=== PATIENT | male | born 1960 | race Caucasian/White ===

== ENCOUNTER 2016-09-21 02:10 | Inpatient (IN) | payer MEDICARE, OTHER ==
[2016-09-21 02:36] LABS: BASOPHILS % (AUTO) 1 % (0-3); EOSINOPHILS % (AUTO) 2 % (0-9); HEMATOCRIT 33 % (39-53); MEAN CORPUSCULAR HGB CONC 33.2 gm/dl (32.0-36.0); MEAN CORPUSCULAR VOLUME 88 fL (80-100); MONOCYTES % (AUTO) 11.1 % (0-12)
[2016-09-21 02:51] LABS: ALBUMIN 2.6 gm/dl (3.4-5.0); CALCIUM 7.8 mg/dl (8.5-10.1); POTASSIUM 3.2 mMol/L (3.5-5.1)
[2016-09-21] MEDS ORDERED: SODIUM CHLORIDE 0.9% 1000ML 1,000 ML IV ONE ×2 (02:57→04:42)
[2016-09-21] MEDS ORDERED: THIAMINE 100 MG/ML 100 MG/ML SOL IV ONE (02:57)
[2016-09-21] MEDS ORDERED: SODIUM CHLORIDE 0.9% FLUSH 10 ML SOL IV PRN (02:57)
[2016-09-21] MEDS ORDERED: FOLIC ACID 1 MG TAB PO ONE (02:59)
[2016-09-21] MEDS ORDERED: THIAMINE 100 MG/ML 100 MG/ML SOL ONE (03:00)
[2016-09-21] MEDS ORDERED: POTASSIUM CHLORIDE 2 MEQ/ML 40 MEQ, LIDOCAINE HCL 1% MDV 2 ML in SODIUM CHLORIDE 0.9% 5... IV ONE (04:08)
[2016-09-21] MEDS ORDERED: POTASSIUM CHLORIDE 2 MEQ/ML SOL IV ONE (04:15)
[2016-09-21] MEDS ORDERED: LIDOCAINE HCL 1% MPF SOL ONE (04:15)
[2016-09-21 05:57] LABS: AMPHETAMINES NEGATIVE (NEGATIVE); METHADONE NEGATIVE (NEGATIVE); OPIATES(OP13) POSITIVE (NEGATIVE); OXYCODONE(OXY) POSITIVE (NEGATIVE); PROPOXYPHENE(PPX) NEGATIVE (NEGATIVE); TRICYCLIC ANTIDEPRESSANTS NEGATIVE (NEGATIVE)
[2016-09-21 10:28] VITALS: BP 186/97; PULSE 77; RESP 12; TEMP 98.9; O2SAT 94
[2016-09-21] MEDS ORDERED: PNEUMOCOCCAL VACCINE 0.5 ML SOL IM ONE (10:56)
== END 2016-09-21 11:25 | disposition home or self-care (01) | DRG 897 ==
LOC: ED 02:10 → ACUTE CARE 04:05
PROVIDERS: ADMIT Family Medicine; ATTEND Family Medicine
DX: T42.4X2A Poisoning by benzodiazepines, intentional self-harm, initial encounter (principal); F10.129 Alcohol abuse with intoxication, unspecified; L03.311 Cellulitis of abdominal wall; Y90.7 Blood alcohol level of 200-239 mg/100 ml
CPT/HCPCS: 36415; 71010; 80053; 80305; 80307; 85025; 90732; 93012; 96365; 96374; 99221; 99238; 99284; J3480; J2001

== ENCOUNTER 2017-04-12 06:37 | Emergency (ER) | payer MEDICARE, OTHER ==
[2017-04-12 06:54] VITALS: RESP 22; TEMP 98.4
[2017-04-12] MEDS ORDERED: HYDROMORPHONE HCL 2 MG/ML SOL IV ONE (06:58)
[2017-04-12] MEDS ORDERED: ONDANSETRON HCL 4 MG/2 ML SOL IV ONE (06:58)
[2017-04-12] MEDS ORDERED: SODIUM CHLORIDE 0.9% 1000ML 1,000 ML IV ONE (07:04)
[2017-04-12] MEDS ORDERED: HYDROMORPHONE 1 MG/ML SYRINGE ONE (07:13)
[2017-04-12] MEDS ORDERED: ONDANSETRON HCL 4 MG/2 ML SOL ONE (07:13)
[2017-04-12 07:35] LABS: BASOPHILS % (AUTO) 1 % (0-3); EOSINOPHILS % (AUTO) 1 % (0-9); HEMATOCRIT 37 % (39-53); MEAN CORPUSCULAR HGB CONC 34.1 gm/dl (32.0-36.0); MEAN CORPUSCULAR VOLUME 83 fL (80-100); MONOCYTES % (AUTO) 9.9 % (0-12); NEUTROPHILS % (AUTO) 62.7 % (37-80)
[2017-04-12 07:42] LABS: ALBUMIN 3.1 gm/dl (3.4-5.0); CALCIUM 8.6 mg/dl (8.5-10.1); POTASSIUM 4.6 mMol/L (3.5-5.1)
[2017-04-12 07:53] LABS: APPEARANCE,URINE Clear; BILIRUBIN,URINE NEGATIVE (NEGATIVE); COLOR,URINE Yellow; GLUCOSE, URINE (UA) NEGATIVE (NEGATIVE); KETONES,URINE NEGATIVE (NEGATIVE); LEUKOCYTE ESTERASE ,URINE NEGATIVE (NEGATIVE); NITRATE,URINE NEGATIVE (NEGATIVE); OCCULT BLOOD,URINE TRACE INTACT (NEG-TRACE); UROBILINOGEN,URINE 0.2 (0.2-1.0 EU)
[2017-04-12 08:21] LABS: RBC,URINE 0-1 (0-3AV/HPF)
[2017-04-12 08:22] LABS: WBC,URINE NEG (0-5AV/HPF)
[2017-04-12 10:48] VITALS: O2SAT 95
[2017-04-12 10:49] VITALS: BP 139/78; PULSE 62
== END 2017-04-12 10:57 | disposition home or self-care (01) | DRG 301 ==
LOC: ED 06:37
DX: I74.3 Embolism and thrombosis of arteries of the lower extremities (principal); K59.00 Constipation, unspecified; R10.30 Lower abdominal pain, unspecified; N20.0 Calculus of kidney
CPT/HCPCS: 36415; 74177; 80053; 81001; 85025; 96365; 96366; 96374; 96375; 99284; 99285; J2405; Q9967; J1170

== ENCOUNTER 2017-10-03 18:31 | Observation (INO) | payer MEDICARE, OTHER ==
[2017-10-03] MEDS ORDERED: SODIUM CHLORIDE 0.9% 1000 ML SOL IV SCH (18:45)
[2017-10-03 18:53] LABS: BASOPHILS % (AUTO) 1 % (0-3); EOSINOPHILS % (AUTO) 1 % (0-9); HEMATOCRIT 39 % (39-53); HEMOGLOBIN 12.8 gm/dl (13.5-17.7); LYMPHOCYTES % (AUTO) 24.4 % (10-50); MEAN CORPUSCULAR HEMOGLOBIN 28.9 pg (27.0-32.0); MEAN CORPUSCULAR HGB CONC 32.8 gm/dl (32.0-36.0); MEAN CORPUSCULAR VOLUME 88 fL (80-100); MONOCYTES % (AUTO) 6.5 % (0-12)
[2017-10-03 19:01] LABS: LACTIC ACID 2.6 mMol/L (0.0-2.0)
[2017-10-03] MEDS ORDERED: HYDROMORPHONE 1 MG/ML SYRINGE IV STA ×2 (19:09→23:00)
[2017-10-03 19:10] LABS: ALBUMIN 2.9 gm/dl (3.4-5.0); BILIRUBIN,TOTAL 0.4 mg/dl (0.2-1.0); CALCIUM 8.7 mg/dl (8.5-10.1); CARBON DIOXIDE 25.3 mEq/L (21-32); CRP INFLAMMATORY 0.36 mg/dl (0.00-0.33); POTASSIUM 4.5 mMol/L (3.5-5.1); TOTAL PROTEIN 7.9 gm/dl (6.4-8.2)
[2017-10-03] MEDS ORDERED: HYDROMORPHONE 1 MG/ML SYRINGE ONE ×3 (19:14→23:11)
[2017-10-03] MEDS ORDERED: KETOROLAC TROMETHAMINE 30 MG/ML SOL ONE (19:46)
[2017-10-03] MEDS ORDERED: APAP/HYDROCODONE 325/5 TAB ONE (19:46)
[2017-10-03 19:57] LABS: SEDIMENTATION RATE 48 mm/hr (0-15)
[2017-10-03] MEDS: VANCOMYCIN HCL 500 MG PDS 1,500 MG in SODIUM CHLORIDE 0.9% 500 ML 500 ML IV SCH (23:00)
[2017-10-03] MEDS ORDERED: METOPROLOL TARTRATE 5 MG/5 ML SOL IV ONE ×2 (23:03→23:11)
[2017-10-03] MEDS ORDERED: VANCOMYCIN HYDROCHLORIDE 500 MG PDS IV ONE (23:10)
[2017-10-04] MEDS ORDERED: HYDROMORPHONE 1 MG/ML SYRINGE IV PRN (00:04)
[2017-10-04] MEDS ORDERED: VANCOMYCIN HCL 500 MG PDS 1,500 MG in SODIUM CHLORIDE 0.9% 500 ML 500 ML IV SCH (00:15)
[2017-10-04] MEDS ORDERED: METOPROLOL TARTRATE 5 MG/5 ML SOL IV ONE (00:29)
[2017-10-04] MEDS ORDERED: ALBUTEROL HFA 60 PUFF/INHALER INH PRN (00:59)
[2017-10-04] MEDS ORDERED: OXYCODONE HCL PO PRN (00:59)
[2017-10-04] MEDS ORDERED: ALBUTEROL NEB SOL 2.5MG/3ML 1 VIAL SOL INH PRN (00:59)
[2017-10-04] MEDS ORDERED: ACETAMINOPHEN PO PRN (00:59)
[2017-10-04] MEDS ORDERED: [UNRECOGNIZED DRUG - OTHER] PO PRN (00:59)
[2017-10-04] MEDS ORDERED: ATORVASTATIN 10 MG TAB ONE ×2 (01:40→20:06)
[2017-10-04] MEDS: TAMSULOSIN HYDROCHLORIDE 0.4 MG CAP PO SCH ×2 (01:43→20:19)
[2017-10-04] MEDS: ATENOLOL 25 MG TAB PO SCH ×2 (01:44→21:41)
[2017-10-04] MEDS: LORAZEPAM 0.5 MG TAB PO SCH ×3 (01:44→20:17)
[2017-10-04] MEDS: ZOLPIDEM TARTRATE 5 MG TAB PO SCH ×2 (01:45→20:17)
[2017-10-04] MEDS: ATORVASTATIN CALCIUM 80 MG TAB PO SCH ×2 (01:53→20:19)
[2017-10-04] MEDS ORDERED: NAPROXEN 500 MG TAB ONE (06:19)
[2017-10-04] MEDS: PANTOPRAZOLE SODIUM 40 MG ECT PO SCH ×2 (06:20→09:34)
[2017-10-04] MEDS: NAPROXEN 500 MG TAB PO PRN (06:21)
[2017-10-04] MEDS ORDERED: OMEPRAZOLE 20 MG CAPSULE PO SCH (07:00)
[2017-10-04 07:18] LABS: ALBUMIN 2.5 gm/dl (3.4-5.0); BILIRUBIN,TOTAL 0.4 mg/dl (0.2-1.0); CALCIUM 8.1 mg/dl (8.5-10.1); CARBON DIOXIDE 24.4 mEq/L (21-32); CREATININE 0.83 mg/dl (0.80-1.30); TOTAL PROTEIN 7.1 gm/dl (6.4-8.2)
[2017-10-04 07:22] LABS: BASOPHILS % (AUTO) 1 % (0-3); EOSINOPHILS % (AUTO) 3 % (0-9); HEMATOCRIT 36 % (39-53); HEMOGLOBIN 11.7 gm/dl (13.5-17.7); LYMPHOCYTES % (AUTO) 25.9 % (10-50); MEAN CORPUSCULAR HEMOGLOBIN 28.9 pg (27.0-32.0); MEAN CORPUSCULAR HGB CONC 32.5 gm/dl (32.0-36.0); MEAN CORPUSCULAR VOLUME 89 fL (80-100); MONOCYTES % (AUTO) 9.4 % (0-12); NEUTROPHILS % (AUTO) 60.2 % (37-80)
[2017-10-04] MEDS ORDERED: APAP/OXYCODONE 325/5 TAB PO PRN (07:42)
[2017-10-04] MEDS: APAP/OXYCODONE 325/5 TAB PO PRN ×2 (08:13→17:22)
[2017-10-04] MEDS ORDERED: Non-Formulary Medication MISC (Carbidopa/Levodopa 25/100 1 TAB) PO SCH (09:00)
[2017-10-04] MEDS: MORPHINE SULFATE 15 MG ER TAB PO SCH ×2 (09:33→20:13)
[2017-10-04] MEDS: FLUOXETINE HYDROCHLORIDE 10 MG CAP PO SCH (09:34)
[2017-10-04] MEDS: CLOPIDOGREL 75 MG TAB PO SCH (09:34)
[2017-10-04] MEDS: Non-Formulary Medication MISC (Fluticasone/Salmeterol 250/50 1 PUFF) INH SCH ×2 (10:03→20:21)
[2017-10-04] MEDS: TIOTROPIUM 18 MCG INH SCH (10:04)
[2017-10-04] MEDS: Non-Formulary Medication MISC (Carbidopa/Levodopa 25/100 1 TAB) PO SCH (10:06)
[2017-10-04] MEDS ORDERED: VANCOMYCIN HYDROCHLORIDE 500 MG PDS IV ONE ×2 (10:22→20:09)
[2017-10-04] MEDS ORDERED: SODIUM CHLORIDE 0.9% 500 ML 500 ML IV ONE ×2 (10:22→20:10)
[2017-10-04] MEDS: VANCOMYCIN HCL 500 MG PDS 1,500 MG in SODIUM CHLORIDE 0.9% 500 ML 500 ML IV SCH ×2 (10:33→21:43)
[2017-10-04 10:51] LABS: CRP INFLAMMATORY 0.36 mg/dl (0.00-0.33)
[2017-10-04 11:04] LABS: LACTIC ACID 1.3 mMol/L (0.0-2.0)
[2017-10-04] MEDS ORDERED: HYDRALAZINE HYDROCHLORIDE 20 MG/ML SOL IV STA (16:18)
[2017-10-04] MEDS: HYDRALAZINE HYDROCHLORIDE 10 MG TAB PO SCH ×2 (16:50→21:41)
[2017-10-04] MEDS: BUDESONIDE 0.25 MG/2 ML SUS INH SCH (20:15)
[2017-10-04] MEDS ORDERED: CARBIDOPA PO SCH (21:00)
[2017-10-04] MEDS ORDERED: LEVODOPA PO SCH (21:00)
[2017-10-04] MEDS: TRIAMCINOLONE ACETO TOP SCH (21:38)
[2017-10-04] MEDS: NYSTATIN TOP SCH (21:38)
[2017-10-05] MEDS: VANCOMYCIN HCL 500 MG PDS 1,500 MG in SODIUM CHLORIDE 0.9% 500 ML 500 ML IV SCH ×2 (03:58→10:57)
[2017-10-05] MEDS: NICOTINE 21 MG PATCH TD SCH ×2 (03:59→08:45)
[2017-10-05] MEDS: APAP/OXYCODONE 325/5 TAB PO PRN (04:05)
[2017-10-05 07:34] VITALS: TEMP 97.5
[2017-10-05] MEDS ORDERED: NAPROXEN 500 MG TAB ONE (07:39)
[2017-10-05] MEDS: NAPROXEN 500 MG TAB PO PRN (07:41)
[2017-10-05 08:21] LABS: BASOPHILS % (AUTO) 1 % (0-3); EOSINOPHILS % (AUTO) 3 % (0-9); HEMATOCRIT 37 % (39-53); LYMPHOCYTES % (AUTO) 32.6 % (10-50); MEAN CORPUSCULAR HEMOGLOBIN 28.5 pg (27.0-32.0); MEAN CORPUSCULAR HGB CONC 32.2 gm/dl (32.0-36.0); MEAN CORPUSCULAR VOLUME 88 fL (80-100); MONOCYTES % (AUTO) 8.2 % (0-12); NEUTROPHILS % (AUTO) 55.8 % (37-80)
[2017-10-05 08:33] LABS: CALCIUM 8.4 mg/dl (8.5-10.1); CARBON DIOXIDE 23.5 mEq/L (21-32); CREATININE 0.87 mg/dl (0.80-1.30); CRP INFLAMMATORY 0.35 mg/dl (0.00-0.33); POTASSIUM 4.1 mMol/L (3.5-5.1)
[2017-10-05] MEDS: FLUOXETINE HYDROCHLORIDE 10 MG CAP PO SCH (08:44)
[2017-10-05] MEDS: PANTOPRAZOLE SODIUM 40 MG ECT PO SCH (08:44)
[2017-10-05] MEDS: MORPHINE SULFATE 15 MG ER TAB PO SCH (08:44)
[2017-10-05] MEDS: CLOPIDOGREL 75 MG TAB PO SCH (08:44)
[2017-10-05] MEDS: HYDRALAZINE HYDROCHLORIDE 10 MG TAB PO SCH (08:44)
[2017-10-05] MEDS: LORAZEPAM 0.5 MG TAB PO SCH (08:45)
[2017-10-05] MEDS: Non-Formulary Medication MISC (Carbidopa/Levodopa 25/100 1 TAB) PO SCH (08:49)
[2017-10-05] MEDS: TRIAMCINOLONE ACETO TOP SCH (08:50)
[2017-10-05] MEDS: Non-Formulary Medication MISC (Fluticasone/Salmeterol 250/50 1 PUFF) INH SCH (08:50)
[2017-10-05] MEDS: NYSTATIN TOP SCH (08:50)
[2017-10-05] MEDS: TIOTROPIUM 18 MCG INH SCH (08:50)
[2017-10-05] MEDS: BUDESONIDE 0.25 MG/2 ML SUS INH SCH (08:52)
[2017-10-05 08:54] VITALS: RESP 18
[2017-10-05 08:57] VITALS: O2SAT 98
[2017-10-05] MEDS ORDERED: LISINOPRIL 5 MG TAB PO SCH (09:00)
[2017-10-05 09:24] LABS: SEDIMENTATION RATE 61 mm/hr (0-15)
[2017-10-05 10:25] VITALS: BP 154/78; PULSE 69
[2017-10-05] MEDS ORDERED: VANCOMYCIN HYDROCHLORIDE 500 MG PDS IV ONE (10:44)
[2017-10-05] MEDS ORDERED: SODIUM CHLORIDE 0.9% 500 ML 500 ML IV ONE (10:44)
== END 2017-10-05 13:15 | disposition home or self-care (01) | DRG 392 ==
LOC: ED 18:31 → ACUTE CARE 23:35
PROVIDERS: ADMIT Surgery; ATTEND Surgery
DX: R10.30 Lower abdominal pain, unspecified (principal); L03.311 Cellulitis of abdominal wall; S31.109D Unspecified open wound of abdominal wall, unspecified quadrant without penetration into peritoneal cavity, subsequent encounter
CPT/HCPCS: 36415; 74177; 80048; 80053; 85025; 85651; 94640; 96365; 96366; 96374; 96375; 99217; 99219; 99285; J0360; J1885; J3370; J7613; Q9967; A6232; A6446; A9270-GY; J1170; J3490

== ENCOUNTER 2017-10-29 15:48 | Emergency (ER) | payer MEDICARE, OTHER ==
[2017-10-29 16:18] VITALS: PULSE 70; TEMP 97.3
[2017-10-29 16:38] LABS: HEMATOCRIT 37 % (39-53); HEMOGLOBIN 11.5 gm/dl (13.5-17.7); MEAN CORPUSCULAR HEMOGLOBIN 28.4 pg (27.0-32.0); MEAN CORPUSCULAR HGB CONC 31.2 gm/dl (32.0-36.0); MEAN CORPUSCULAR VOLUME 91 fL (80-100)
[2017-10-29] MEDS: SODIUM CHLORIDE 0.9% FLUSH 10 ML SOL IV PRN ×2 (16:38→16:48)
[2017-10-29] MEDS ORDERED: HYDROMORPHONE 1 MG/ML SYRINGE IV ONE (16:40)
[2017-10-29] MEDS ORDERED: HYDROMORPHONE 1 MG/ML SYRINGE ONE (16:43)
[2017-10-29 16:54] LABS: ALBUMIN 2.8 gm/dl (3.4-5.0); BILIRUBIN,TOTAL 0.3 mg/dl (0.2-1.0); CALCIUM 8.4 mg/dl (8.5-10.1); CARBON DIOXIDE 25.4 mEq/L (21-32); CREATININE 0.89 mg/dl (0.80-1.30); POTASSIUM 4.1 mMol/L (3.5-5.1); TOTAL PROTEIN 7.8 gm/dl (6.4-8.2)
[2017-10-29 17:23] LABS: BAND NEUTROPHILS % (MANUAL) 0 %; BASOPHILS % (MANUAL) 0 % (0-3); EOSINOPHILS % (MANUAL) 5 % (0-9); LYMPHOCYTES % (MANUAL) 39 % (10-50); MONOCYTES % (MANUAL) 6 % (0-12); NEUTROPHILS % (MANUAL) 50 % (37-80); NORMAL RBCS PRESENT
[2017-10-29] MEDS ORDERED: SULFAMETHOXAZOLE/TRIMETHOPRI 800/160 MG PO ONE (18:09)
[2017-10-29] MEDS ORDERED: SULFAMETHOXAZOLE/TRIMETHOPRI 800/160 MG ONE (18:10)
[2017-10-29] MEDS ORDERED: KETOROLAC TROMETHAMINE 30 MG/ML SOL IV ONE (18:12)
[2017-10-29 18:14] VITALS: BP 147/86; RESP 16; O2SAT 97
[2017-10-29] MEDS ORDERED: KETOROLAC TROMETHAMINE 30 MG/ML SOL ONE (18:21)
== END 2017-10-29 18:48 | disposition home or self-care (01) | DRG 603 ==
LOC: ED 15:48
DX: L03.311 Cellulitis of abdominal wall (principal); B95.62 Methicillin resistant Staphylococcus aureus infection as the cause of diseases classified elsewhere; B96.89 Other specified bacterial agents as the cause of diseases classified elsewhere; L98.491 Non-pressure chronic ulcer of skin of other sites limited to breakdown of skin; F17.210 Nicotine dependence, cigarettes, uncomplicated
CPT/HCPCS: 36415; 80053; 85007; 85027; 87040; 87070; 87075; 87077; 87186; 96374; 96375; 97597; 99283; 99291; J1885; A6232; A9270-GY; J1170

== ENCOUNTER 2017-11-09 08:04 | Emergency (ER) | payer MEDICARE, OTHER ==
[2017-11-09 08:14] VITALS: BP 106/69; PULSE 75; RESP 16; TEMP 97.6; O2SAT 95
[2017-11-09] MEDS ORDERED: CEFTRIAXONE 1 GM PDS IM ONE (08:40)
[2017-11-09] MEDS ORDERED: CEFTRIAXONE 1 GM PDS ONE (08:55)
[2017-11-09] MEDS ORDERED: LIDOCAINE HCL 1% MPF 30 SOL ONE (08:56)
== END 2017-11-09 09:14 | disposition home or self-care (01) | DRG 607 ==
LOC: ED 08:04
DX: B37.2 Candidiasis of skin and nail (principal); L03.311 Cellulitis of abdominal wall; L97.111 Non-pressure chronic ulcer of right thigh limited to breakdown of skin
CPT/HCPCS: 96372; 99282; 99283; J0696; J2001

== ENCOUNTER 2017-11-17 13:37 | Emergency (ER) | payer MEDICARE, OTHER ==
[2017-11-17 13:48] VITALS: RESP 20; TEMP 97.9; O2SAT 96
[2017-11-17 14:14] LABS: BASOPHILS % (AUTO) 1 % (0-3); EOSINOPHILS % (AUTO) 1 % (0-9); HEMATOCRIT 36 % (39-53); HEMOGLOBIN 11.4 gm/dl (13.5-17.7); LYMPHOCYTES % (AUTO) 17.8 % (10-50); MEAN CORPUSCULAR HEMOGLOBIN 29.4 pg (27.0-32.0); MEAN CORPUSCULAR HGB CONC 32.2 gm/dl (32.0-36.0); MEAN CORPUSCULAR VOLUME 92 fL (80-100); MONOCYTES % (AUTO) 6.4 % (0-12); NEUTROPHILS % (AUTO) 74.5 % (37-80)
[2017-11-17 15:26] VITALS: BP 131/89; PULSE 85
== END 2017-11-17 15:13 | disposition home or self-care (01) | DRG 951 ==
LOC: ED 13:37
DX: Z48.00 Encounter for change or removal of nonsurgical wound dressing (principal); L97.111 Non-pressure chronic ulcer of right thigh limited to breakdown of skin; L98.499 Non-pressure chronic ulcer of skin of other sites with unspecified severity
CPT/HCPCS: 36415; 85025; 99211; 99283; A6232

== ENCOUNTER 2017-12-06 14:16 | Emergency (ER) | payer MEDICARE, OTHER ==
[2017-12-06] MEDS ORDERED: FENTANYL 100MCG/2ML SOL ONE (14:43)
[2017-12-06] MEDS ORDERED: ONDANSETRON HCL 4 MG/2 ML SOL IV ONE (14:43)
[2017-12-06] MEDS ORDERED: FENTANYL 100MCG/2ML SOL IV ONE (14:43)
[2017-12-06] MEDS ORDERED: ONDANSETRON HCL 4 MG/2 ML SOL ONE (14:43)
[2017-12-06] MEDS ORDERED: SODIUM CHLORIDE 0.9% 1000ML 1,000 ML IV ONE (14:44)
[2017-12-06 14:51] LABS: LACTIC ACID 2.2 mMol/L (0.0-2.0)
[2017-12-06 14:54] VITALS: TEMP 98.5
[2017-12-06 14:54] LABS: HEMATOCRIT 34 % (39-53); HEMOGLOBIN 11.1 gm/dl (13.5-17.7); MEAN CORPUSCULAR HEMOGLOBIN 30.2 pg (27.0-32.0); MEAN CORPUSCULAR HGB CONC 32.4 gm/dl (32.0-36.0); MEAN CORPUSCULAR VOLUME 93 fL (80-100)
[2017-12-06 15:02] LABS: BILIRUBIN,TOTAL 1.2 mg/dl (0.2-1.0); CALCIUM 8.3 mg/dl (8.5-10.1); CARBON DIOXIDE 17.8 mEq/L (21-32); CREATININE 2.69 mg/dl (0.80-1.30); TOTAL PROTEIN 7.8 gm/dl (6.4-8.2)
[2017-12-06] MEDS ORDERED: HYDROMORPHONE HCL 2 MG/ML SOL IV ONE (15:18)
[2017-12-06] MEDS ORDERED: SODIUM CHLORIDE 0.9% IV ONE (15:20)
[2017-12-06] MEDS ORDERED: HYDROMORPHONE 1 MG/ML SYRINGE ONE (15:20)
[2017-12-06] MEDS ORDERED: PDS IV ONE (15:20)
[2017-12-06] MEDS ORDERED: VANCOMYCIN HCL IV ONE (15:20)
[2017-12-06 15:25] LABS: CRP INFLAMMATORY 4.97 mg/dl (0.00-0.33)
[2017-12-06] MEDS ORDERED: VANCOMYCIN HYDROCHLORIDE 500 MG PDS IV ONE (15:26)
[2017-12-06] MEDS ORDERED: PIPERACILLIN/TAZOBACT 3.375 GM 3.375 GM in SODIUM CHLORIDE 0.9% 100 ML 100 ML IV SCH (15:30)
[2017-12-06 15:37] LABS: BAND NEUTROPHILS % (MANUAL) 2 %; BASOPHILS % (MANUAL) 0 % (0-3); EOSINOPHILS % (MANUAL) 0 % (0-9); LYMPHOCYTES % (MANUAL) 2 % (10-50); MONOCYTES % (MANUAL) 1 % (0-12); NEUTROPHILS % (MANUAL) 95 % (37-80); NORMAL RBCS NORMAL RBCS
[2017-12-06] MEDS ORDERED: PIPERACILLIN/TAZOBACT 3.375 GM PDS IV ONE (15:42)
[2017-12-06] MEDS ORDERED: SODIUM CHLORIDE 0.9% 1000ML 1,000 ML IV SCH (16:00)
[2017-12-06 16:49] VITALS: BP 81/51; PULSE 76; RESP 17; O2SAT 96
[2017-12-06 16:55] LABS: APPEARANCE,URINE Clear; BILIRUBIN,URINE 1+ (NEGATIVE); COLOR,URINE Dark yellow; GLUCOSE, URINE (UA) NEGATIVE (NEGATIVE); KETONES,URINE TRACE (NEGATIVE); LEUKOCYTE ESTERASE ,URINE NEGATIVE (NEGATIVE); NITRATE,URINE NEGATIVE (NEGATIVE); OCCULT BLOOD,URINE NEGATIVE (NEG-TRACE); UROBILINOGEN,URINE 0.2 (0.2-1.0 EU)
[2017-12-06 17:04] LABS: BARBITUATES NEGATIVE (NEGATIVE); ICTOTEST,URINE NEGATIVE (NEGATIVE); METHADONE NEGATIVE (NEGATIVE); TRICYCLIC ANTIDEPRESSANTS POSITIVE (NEGATIVE)
[2017-12-06 17:05] LABS: AMPHETAMINES NEGATIVE (NEGATIVE); BENZODIAZEPINES POSITIVE (NEGATIVE); CANNABINOL(THC) NEGATIVE (NEGATIVE); COCAINE(COC) NEGATIVE (NEGATIVE); METHAMPHETAMINES NEGATIVE (NEGATIVE); OPIATES(OPI) POSITIVE (NEGATIVE); OXYCODONE(OXY) POSITIVE (NEGATIVE); PROPOXYPHENE(PPX) NEGATIVE (NEGATIVE)
== END 2017-12-06 16:46 | disposition short-term general hospital (02) | DRG 392 ==
LOC: ED 14:16
DX: R10.30 Lower abdominal pain, unspecified (principal); L03.311 Cellulitis of abdominal wall; R79.89 Other specified abnormal findings of blood chemistry; R39.9 Unspecified symptoms and signs involving the genitourinary system
CPT/HCPCS: 36415; 74176; 80053; 80305; 81003; 85007; 85027; 87040; 87088; 96365; 96366; 96374; 96375; 99291; J2405; J2543; J3010; J3370; A6232; J1170

== ENCOUNTER 2017-12-18 08:42 | Inpatient (IN) | payer MEDICARE, OTHER ==
[2017-12-19] MEDS ORDERED: ACETAMINOPHEN 325 MG PO PRN (06:16)
[2017-12-19] MEDS ORDERED: ALBUTEROL HFA 60 PUFF/INHALER INH PRN (06:16)
[2017-12-19] MEDS ORDERED: LORAZEPAM 0.5 MG TAB PO PRN (06:16)
[2017-12-19] MEDS ORDERED: SULFAMETHOXAZOLE/TRIMETHOPRI 800/160 MG PO SCH (08:00)
[2017-12-19] MEDS ORDERED: TAMSULOSIN HYDROCHLORIDE 0.4 MG CAP PO SCH (09:00)
[2017-12-19] MEDS ORDERED: TIOTROPIUM BROMIDE 18 MCG CAP INH SCH (12:00)
[2017-12-19] MEDS: NICOTINE 7 MG PATCH TOP SCH (13:58)
[2017-12-19] MEDS: PANTOPRAZOLE SODIUM 40 MG ECT PO SCH (15:29)
[2017-12-19] MEDS: ATENOLOL 25 MG TAB PO SCH (15:29)
[2017-12-19] MEDS: CLOPIDOGREL 75 MG TAB PO SCH (15:29)
[2017-12-19] MEDS: FLUOXETINE HYDROCHLORIDE 10 MG CAP PO SCH (15:29)
[2017-12-19] MEDS: APAP/OXYCODONE 1 EACH TABLET PO PRN ×3 (15:37→22:30)
[2017-12-19] MEDS: ALBUTEROL/IPRATROPIUM 1 VIAL SOL INH SCH ×3 (16:28→21:20)
[2017-12-19] MEDS ORDERED: ATORVASTATIN 10 MG TAB PO SCH (21:00)
[2017-12-19] MEDS ORDERED: CARBIDOPA/LEVODOPA 25/250 TAB PO SCH (21:00)
[2017-12-19] MEDS ORDERED: OLANZAPINE 2.5 MG TAB PO SCH (21:00)
[2017-12-19] MEDS: FLUTICASONE/SALMETEROL 250/50 1 PUFF DSK INH SCH (21:20)
[2017-12-20 00:45] VITALS: RESP 16
[2017-12-20] MEDS: CARBIDOPA/LEVODOPA 25/100 TAB PO SCH ×3 (01:58→14:04)
[2017-12-20] MEDS: APAP/OXYCODONE 1 EACH TABLET PO PRN ×4 (02:26→15:34)
[2017-12-20 08:43] VITALS: BP 110/68; TEMP 96
[2017-12-20] MEDS: NICOTINE 7 MG PATCH TOP SCH (08:45)
[2017-12-20] MEDS: CLOPIDOGREL 75 MG TAB PO SCH (08:45)
[2017-12-20] MEDS: PANTOPRAZOLE SODIUM 40 MG ECT PO SCH (08:46)
[2017-12-20] MEDS: ATENOLOL 25 MG TAB PO SCH (08:47)
[2017-12-20] MEDS: FLUOXETINE HYDROCHLORIDE 10 MG CAP PO SCH (08:47)
[2017-12-20] MEDS: FLUTICASONE/SALMETEROL 250/50 1 PUFF DSK INH SCH (08:51)
[2017-12-20] MEDS: ALBUTEROL/IPRATROPIUM 1 VIAL SOL INH SCH ×2 (08:54→14:01)
[2017-12-20] MEDS ORDERED: PREDNISONE 20 MG TAB PO SCH (09:00)
[2017-12-20 14:04] VITALS: O2SAT 97
[2017-12-20 14:19] VITALS: PULSE 83
[2017-12-20] MEDS ORDERED: INFLUENZA VIRUS VACCINE 0.5 ML SUS IM ONE (16:15)
[2017-12-27] MEDS ORDERED: PREDNISONE 20 MG TAB PO SCH (09:00)
[2018-01-04] MEDS ORDERED: PREDNISONE 20 MG TAB PO SCH (09:00)
== END 2017-12-20 16:37 | disposition home or self-care (01) | DRG 190 ==
LOC: ACUTE CARE 12-19 12:08
PROVIDERS: ADMIT Family Medicine; ATTEND Family Medicine
PROC: F01K5ZZ Range of Motion and Joint Integrity Assessment of Musculoskeletal System - Upper Back / Upper Extremity (ICD-10-PCS; principal; 2017-12-19)
PROC: F02Z3ZZ Grooming/Personal Hygiene Assessment (ICD-10-PCS; 2017-12-19)
PROC: F01L5YZ Range of Motion and Joint Integrity Assessment of Musculoskeletal System - Lower Back / Lower Extremity using Other Equipment (ICD-10-PCS; 2017-12-19)
DX: J44.9 Chronic obstructive pulmonary disease, unspecified (principal); A41.9 Sepsis, unspecified organism; T81.89XD Other complications of procedures, not elsewhere classified, subsequent encounter; Z98.890 Other specified postprocedural states
CPT/HCPCS: 90686; 94150; 94640; A9270-GY; G0008

== ENCOUNTER 2018-07-07 11:27 | Emergency (ER) | payer MEDICARE, OTHER ==
[2018-07-07 12:14] LABS: BASOPHILS % (AUTO) 1 % (0-3); EOSINOPHILS % (AUTO) 2 % (0-9); HEMATOCRIT 33 % (39-53); MEAN CORPUSCULAR HEMOGLOBIN 21.9 pg (27.0-32.0); MEAN CORPUSCULAR HGB CONC 30.7 gm/dl (32.0-36.0); MONOCYTES % (AUTO) 9.7 % (0-12)
[2018-07-07 12:27] LABS: MEAN CORPUSCULAR VOLUME 71 fL (80-100)
[2018-07-07 12:28] LABS: ALBUMIN 3.4 gm/dl (3.4-5.0); BILIRUBIN,TOTAL 0.3 mg/dl (0.2-1.0); CALCIUM 9.1 mg/dl (8.5-10.1); CARBON DIOXIDE 23.6 mEq/L (21-32); CREATININE 1.13 mg/dl (0.80-1.30); TOTAL PROTEIN 8.1 gm/dl (6.4-8.2)
[2018-07-07 12:29] VITALS: RESP 18
[2018-07-07 12:34] VITALS: O2SAT 97
[2018-07-07 12:34] LABS: ANISOCYTOSIS MOD AMT
[2018-07-07 12:45] VITALS: TEMP 97.6
[2018-07-07 12:49] VITALS: BP 163/87; PULSE 71
== END 2018-07-07 13:10 | disposition home or self-care (01) | DRG 594 ==
LOC: ED 11:27
DX: L98.499 Non-pressure chronic ulcer of skin of other sites with unspecified severity (principal)
CPT/HCPCS: 36415; 80053; 85025; 99282; 99283